=== PATIENT | male | born 1965 | race Caucasian/White ===

== ENCOUNTER → 2017-03-26 | Outpatient (CLI) | payer OTHER ==
--- NOTE | 2017-03-26 22:31 | MR ---
EXAMINATION TYPE: MR knee RT wo con DATE OF EXAM: 03/26/2017 COMPARISON: Outside right knee x-ray March 21, 2017. HISTORY: Pain in right knee per order. Stiffness for many years, clicking sensation for 3 to 4 years, pain over last few weeks. TECHNIQUE: Multiplanar, multisequence images of the knee is performed without IV contrast. FINDINGS: MEDIAL MENISCUS: Anterior horn is intact without tear. There is oblique increased signal posterior ho rn of medial meniscus, does not extend to articular surface. LATERAL MENISCUS: Anterior horn is intact without tear. There is increased linear and triangular shap ed signal posterior horn of lateral meniscus appears to extend to inferior articular surface on sagit adriano image 25. CRUCIATE LIGAMENTS: The anterior and posterior cruciate ligaments are intact and unremarkable. COLLATERAL LIGAMENTS: The medial collateral ligament and lateral collateral ligament complex are inta ct . Mild increased fluid signal surrounds medial collateral ligament. EXTENSOR MECHANISM: Visualized quadriceps and patellar tendons are intact. EFFUSION: No significant suprapatellar joint effusion. POPLITEAL CYST: There is large popliteal/chase cyst measuring 6 cm on long axis on sagittal image 11. Transverse diameter is 3.6 cm on axial image 14. TRICOMPARTMENT SPACES: There is mild tricompartment joint space loss most pronounced patellofemoral c ompartment where there is mild spurring. CARTILAGE: Tricompartment articular cartilage is fairly well-maintained. There is no significant andreia dromalacia patella. BONE MARROW SIGNAL: No focal abnormal marrow signal is appreciated. OTHER: No additional significant abnormality is appreciated. IMPRESSION: 1. Full-thickness tear posterior horn of lateral meniscus. 2. Intrasubstance tear posterior horn of medial meniscus. 3. Large popliteal cyst. 4. Mild tricompartment degenerative changes most prominent patellofemoral compartment. 5. Mild MCL sprain injury.
== END | disposition home or self-care (01) ==
LOC: RADMRIMAIN 19:30
PROVIDERS: ATTEND Orthopaedic Surgery
DX: S83.241A Other tear of medial meniscus, current injury, right knee, initial encounter (principal); S83.281A Other tear of lateral meniscus, current injury, right knee, initial encounter; S83.411A Sprain of medial collateral ligament of right knee, initial encounter; M71.21 Synovial cyst of popliteal space [Baker], right knee; M25.861 Other specified joint disorders, right knee

== ENCOUNTER → 2018-04-29 | Outpatient (CLI) | payer OTHER ==
[2018-04-29 11:13] LABS: Basophils % (A) 0 %; Eosinophils # (A) 0.2 k/uL (0-0.7); Eosinophils % (A) 3 %; HCT 47.9 % (39.0-53.0); HGB 16.2 gm/dL (13.0-17.5); Lymphocytes # (A) 1.3 k/uL (1.0-4.8); Lymphocytes % (A) 24 %; MCH 31.1 pg (25.0-35.0); MCHC 33.7 g/dL (31.0-37.0); MCV 92.2 fL (80.0-100.0); Mean Platelet Volume 6.7; Monocytes # (A) 0.3 k/uL (0-1.0); Monocytes % (A) 6 %; Neutrophils # (A) 3.4 k/uL (1.3-7.7); Neutrophils % (A) 64 %; Platelet Count 192 k/uL (150-450); RDW 12.7 % (11.5-15.5); WBC 5.3 k/uL (3.8-10.6)
[2018-04-29 11:34] LABS: Potassium 5.3 mmol/L (3.5-5.1)
== END | disposition home or self-care (01) ==
LOC: LABPAT 09:28
PROVIDERS: ATTEND Orthopaedic Surgery
DX: Z01.818 Encounter for other preprocedural examination (principal); M23.91 Unspecified internal derangement of right knee; Z01.812 Encounter for preprocedural laboratory examination
CPT/HCPCS: 36415; 80051; 85025; 93005

== ENCOUNTER → 2018-05-15 | Day surgery (SDC) | payer OTHER ==
[2018-05-12 12:01] VITALS: BMI 25.1
--- NOTE | 2018-05-14 11:59 | HP ---
HISTORY AND PHYSICAL CHIEF COMPLAINT: Right knee pain. 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 It has worsened recently. He notes lateral pain along with clicking and giving way. He notes it limits his normal function and activities. PAST MEDICAL HISTORY: Negative. PAST SURGICAL HISTORY: Significant for right shoulder surgery along with tonsillectomy. CURRENT ALLERGIES: None. He denies drug allergies. FAMILY HISTORY: Significant for cancer. SOCIAL HISTORY: Significant for social alcohol use. REVIEW OF SYSTEMS: A 16point review of systems otherwise reviewed and is noncontributory. PHYSICAL EXAMINATION: On examination, the patient is approximately 5 foot 10, 170 pounds of mesomorphic habitus. HEENT exam is nonfocal. Neck is supple. He has painless passive motion of right hip. Straight leg raise is negative. Active motion right knee -12 to 135 degrees of flexion. He has a trace effusion. Tender. He is tender about the medial and lateral joint line. Collaterals are stable, Tyler is negative, Adriana's elicits lateral pain. He has genu valgum alignment. His distal neurovascular exam appears intact in the right lower extremity. MRI report for the right knee from 03/26/2017 shows a posterior lateral meniscal tear. X-rays of the right knee obtained in the office show moderate lateral compartment narrowing. IMPRESSION: 1. Right knee internal derangement with symptomatic lateral meniscal tear. 2. Right knee moderate lateral compartment osteoarthrosis. RECOMMENDATIONS: I talked to the patient at length regarding his condition and treatment options. At this point, he is having significant pain and mechanical symptoms that limit him. After thorough discussion, he opts to proceed with surgery. We will plan to proceed with arthroscopic evaluation with probable partial lateral meniscectomy. Risks and benefits were discussed at length in layman's terms. We will likely perform that as an outpatient procedure. MMODL / IJN: [id number] /
[~2018-05-15] MED LIST: DEXAMETHASONE SOD PHOSPHATE 10 MG/ML 1 ML VIAL IV ONE; EPINEPHrine (PF) 1 ML in SODIUM CHLORIDE 0.9% IRRIGATIO 3,000 ML IRRIGATION ONE; GLYCOPYRROLATE 0.2 MG/ML 2 ML VIAL ONE; LACTATED RINGERS 1,000 ML IV ONE; LACTATED RINGERS 1,000 ML IV SCH; LIDOCAINE 1% 20 ML VIAL (10MG/ML) FOR IV START INTRADERMA PRN; MIDAZOLAM 2 MG/2 ML VIAL IVP ONE; NEOSTIGMINE 1 MG/ML 10 ML VIAL ONE; ONDANSETRON 4 MG/2 ML VIAL IVP ONE; ONDANSETRON 4 MG/2 ML VIAL ONE; PROPOFOL 10 MG/ML 20 ML VIAL IV ONE; ROCURONIUM BROMIDE 10 MG/ML 10 ML VIAL IV ONE; SCOPOLAMINE 1.5MG/72HR PATCH TRANSDERM ONE; ceFAZolin IN SWFI 2 GM/20 ML SYRINGE IVP ONE
[2018-05-15 09:43] VITALS: RESP 16
--- NOTE | 2018-05-15 12:42 | P.OP ---
Date of Procedure: 05/15/18 Preoperative Diagnosis: Right knee internal derangement Postoperative Diagnosis: Right knee posterior lateral meniscal tear/posterior medial meniscal tear/ patellofemoral plica Procedure(s) Performed: Right knee arthroscopic partial lateral meniscectomy/partial medial meniscectomy /plica resection Anesthesia: JALYN Surgeon: Brandon Morales Estimated Blood Loss (ml): 10 Pathology: none sent Condition: stable Disposition: PACU Indications for Procedure: The patient's a 53-year-old male who presents with progressive right knee pain and mechanical symptoms despite adequate conservative measures. Discussion of the risks and benefits of operative intervention versus continued conservative measures was made with patient. He opted to proceed with surgery. Operative risks to include infection, neurovascular injury, development of blood clots, possible incomplete resolution of symptoms, possible worsening symptoms and need versus procedures was discussed. Informed consent was obtained. Operative Findings: As below Description of Procedure: The patient was brought to the operating room, and after induction of general anesthesia examined the right knee. Collaterals were stable, Tyler was negative, and posterior drawer was negative. The right lower extremity was prepped and draped in normal fashion. A superior lateral portal was made through a 3 mm skin incision superior and lateral to the patella. This was used for outflow. A lateral portal was made through a 5 mm vertical skin incision lateral to the patella tendon above the joint line. Diagnostic arthroscopy was performed. A medial portal was made through a similar incision medial to the patella tendon above the joint line. On inspection of the medial compartment, an oblique tear involving the posterior horn of the medial meniscus in the white-junction was noted. This was debrided back to a stable base with straight baskets and a motorized shaver. The remaining medial meniscus was stable and intact. On inspection of the notch, the anterior cruciate ligament appeared to be intact. On inspection of the lateral compartment, a flap tear involving the posterior most aspect of the lateral meniscus in the white-white junction was noted. This was debrided back to stable base with straight baskets and a motorized shaver. The edges were contoured. Grade 2-3 chondral changes were noted diffusely and lateral compartment. On inspection the patellofemoral articulation, a large medial patellofemoral plica was noted that appeared to impinge on the medial femoral condyle throughout the arc of motion. This was debrided with motorized shaver back to stable base. Chondral fibrillation was noted however no loose chondral fragments were present. The gutters were clear debris. The knee was then thoroughly irrigated. The portals were closed with Steri-Strips. A sterile dressing was applied in addition to a compression stocking. The patient was awoken from general anesthesia and transferred to recovery room in good condition. Blood loss was estimated 10 mL. No complications were incurred.
[2018-05-15 12:59] VITALS: TEMP 96.7
[2018-05-15] MEDS: HYDROmorphone 1 MG/ML 1 ML SYRINGE IVP PRN ×2 (12:59→13:07)
[2018-05-15 13:49] VITALS: BP 118/79; PULSE 54
== END | disposition home or self-care (01) ==
LOC: OR 08:42
PROVIDERS: ATTEND Orthopaedic Surgery
DX: S83.281A Other tear of lateral meniscus, current injury, right knee, initial encounter (principal); S83.241A Other tear of medial meniscus, current injury, right knee, initial encounter; X58.XXXA Exposure to other specified factors, initial encounter; M17.11 Unilateral primary osteoarthritis, right knee; M67.51 Plica syndrome, right knee
CPT/HCPCS: 29880; J2250; J1100; J2710; J2405; J0171; J1170; J2704; J0690